=== PATIENT | female | born 1970 | race Caucasian/White ===

== ENCOUNTER → 2019-08-02 | Outpatient (CLI) | payer BC ==
--- NOTE | 2019-08-02 09:41 | US ---
EXAMINATION TYPE: US abdomen complete DATE OF EXAM: 08/02/2019 COMPARISON: NONE CLINICAL HISTORY: R10.9 left sided abd pain. LUQ pain felt for 1 month, constipated EXAM MEASUREMENTS: Liver Length: 15.7 cm Gallbladder Wall: 0.3 cm CBD: 0.5 cm Spleen: 11.0 cm Right Kidney: 9.1 x 5.3 x 4.4 cm Left Kidney: 9.7 x 4.0 x 4.4 cm overlying bowel gas limits exam Pancreas: not seen Liver: difficult to penetrate Gallbladder: wnl Evidence for sonographic Del Toro's sign: no CBD: wnl Spleen: wnl Right Kidney: wnl Left Kidney: wnl Upper IVC: wnl Abd Aorta: wnl The visualized liver is heterogeneous. Evaluation for focal masses suboptimal due to the heterogeneit y. The intrahepatic portion of the IVC and visualized abdominal aorta are within normal limits. The re is no evidence of shadowing mobile cholelithiasis. Common bile duct is unremarkable. Pancreas not well-seen on images saved secondary to overlying bowel gas per technologist. The spleen is within n ormal limits. Kidneys are symmetric and free of hydronephrosis. No renal lesions are seen on images saved. IMPRESSION: Suboptimal study without acute findings seen to account for patient's symptoms of left up per quadrant pain. Mild diffuse fatty infiltration of the liver is thought present.
== END | disposition home or self-care (01) ==
LOC: RADUSWWP 08:51
PROVIDERS: ATTEND Internal Medicine
DX: K76.0 Fatty (change of) liver, not elsewhere classified (principal)
CPT/HCPCS: 76700

== ENCOUNTER → 2020-06-13 | Outpatient (CLI) | payer BC ==
--- NOTE | 2020-06-14 06:38 | CT ---
EXAMINATION TYPE: CT abdomen w con DATE OF EXAM: 06/13/2020 HISTORY: LUQ pain CT DLP: 1005.1mGycm Automated Exposure Control for Dose Reduction was Utilized. CONTRAST: CT scan of the abdomen is performed with IV Contrast, patient injected with 100 mL of Isovue 300. COMPARISON: Abdominal ultrasound August 02, 2019 FINDINGS: LUNG BASES: Mild focal linear scarring or atelectasis in the posterior lingula noted. LIVER/GB: No significant abnormality is appreciated. PANCREAS: No significant abnormality is seen. SPLEEN: No significant abnormality is seen. ADRENALS: No significant abnormality is seen. KIDNEYS: Symmetric cortical medullary uptake and excretion without hydronephrosis seen bilaterally. T here is 2 to 3 mm nonobstructing calculus midpole of the right kidney axial image 28 BOWEL: The oral contrast does not reach level of the terminal ileum making evaluation of distal bowel slightly suboptimal. No suspicious small or large bowel dilatation. LYMPH NODES: No greater than 1cm abdominal lymph nodes are appreciated. OSSEOUS STRUCTURES: No significant abnormality is seen. OTHER: Small fat-containing umbilical hernia. IMPRESSION: No suspicious is seen to account for patient's clinical symptoms of left upper quadrant p ain. Incidental nonobstructing 2 to 3 mm right renal calculus.
== END | disposition home or self-care (01) ==
LOC: RADCTMAIN 16:08
PROVIDERS: ATTEND Internal Medicine
DX: N20.0 Calculus of kidney (principal)
CPT/HCPCS: 74160; Q9967

== ENCOUNTER 2020-09-13 10:25 | Day surgery (SDC) | payer BC ==
[2020-09-11 09:33] VITALS: BMI 31.0
[~2020-09-13 10:25] MED LIST: LACTATED RINGERS 1,000 ML IV SCH
[2020-09-13 10:45] VITALS: TEMP 95.5
[2020-09-13] MEDS ORDERED: LIDOCAINE 1% (10MG/ML) FOR IV START INTRADERMA ONE (10:49)
[2020-09-13] MEDS ORDERED: PROPOFOL 10 MG/ML 20 ML VIAL IV ONE (11:09)
[2020-09-13] MEDS ORDERED: LIDOCAINE 1% INJ 10MG/ML (20 ML MDV) ONE (11:09)
--- NOTE | 2020-09-13 11:21 | P.PCN ---
Date of Procedure: 09/13/20 Preoperative Diagnosis: Epigastric pain Postoperative Diagnosis: Gastritis Duodenitis Procedure(s) Performed: EGD with biopsy Surgeon: Stuart Martins Pathology: other (Biopsy of duodenum, antrum, esophagus) Condition: stable Disposition: same day Indications for Procedure: 42-year-old female with recent finding of left upper quadrant and epigastric pain. CT of the abdomen did not find any acute abnormality. Plan is for upper endoscopy for further evaluation. Patient was explained risks, benefits and THE procedure and did provide consent prior to attending the endoscopy suite. Operative Findings: Gastritis Duodenitis Description of Procedure: The patient was brought to the endoscopy suite. She he was then placed in left lateral decubitus position and adequate sedation was achieved using conscious sedation. A bite block was placed and an endoscope was placed in the oropharynx and advanced under endoscopic visualization. The scope was advanced through the esophagus into the stomach, through the gastric antrum and into the pylorus. The third portion of the duodenum was visualized. The endoscope was then slowly withdrawn. The first portion of duodenum was noted to have inflammatory changes. Biopsies were taken. The antrum was noted to have mild inflammatory changes. Biopsies were taken. No ulcerations noted. The gastric body distended normally and the gastric folds appeared normal and flattened with insufflation. A retroflexed view of the fundus and GE junction revealed no significant hiatal hernia. Esophagus appeared endoscopically normal. Biopsies were taken. Excess air was removed as was withdrawn and the procedure terminated. The patient was then transferred to the recovery unit in stable condition.
[2020-09-13 11:27] VITALS: RESP 18
[2020-09-13 11:46] VITALS: BP 118/78; PULSE 78
== END 2020-09-13 11:57 | disposition home or self-care (01) ==
LOC: ORWHC2ENDO 10:25
PROVIDERS: ATTEND Surgery
DX: K29.50 Unspecified chronic gastritis without bleeding (principal); K21.00 Gastro-esophageal reflux disease with esophagitis, without bleeding; K29.80 Duodenitis without bleeding; Z86.73 Personal history of transient ischemic attack (TIA), and cerebral infarction without residual deficits; Z79.899 Other long term (current) drug therapy; L40.50 Arthropathic psoriasis, unspecified; Z88.1 Allergy status to other antibiotic agents
CPT/HCPCS: 81025; 88305; 43239; J2001; J2704

== ENCOUNTER → 2024-08-02 | Outpatient (CLI) | payer BC ==
--- NOTE | 2024-08-02 11:28 | XR ---
EXAMINATION TYPE: XR shoulder complete RT DATE OF EXAM: 08/02/2024 11:18 AM INDICATION: Patient age:Female; 54 years old; Reason for study: [id number] RT SHLD PAIN; COMPARISON: None TECHNIQUE: The right shoulder was examined in AP, internally rotated and scapular Y projections. . 3 views. FINDINGS: No evidence of acute osseous pathology, joint dislocation, or soft tissue swelling. There is a 3 mm c alcification along the lateral aspect of the humeral head. The remaining portions of the visualized c hest are unremarkable. IMPRESSION: 1. No acute osseous pathology. 2. Findings suggestive of calcific tendinitis. [facility], , 08/02/2024 11:25 AM
== END | disposition home or self-care (01) ==
LOC: RADXRYALE 10:48
PROVIDERS: ATTEND Internal Medicine
DX: R22.31 Localized swelling, mass and lump, right upper limb (principal)